=== PATIENT | female | born 2000 | race Caucasian/White ===

== ENCOUNTER 2019-09-08 19:53 | Emergency (ER) | payer BC ==
--- NOTE | 2019-09-08 20:17 | ED ---
Neck Pain - HPI Summary HPI Summary: 19 yo female presents to [facility] [place] ED with right sided neck pain that began today. She tells me that about 2 days ago she was reaching for something off the side of her bed and fell off and landed awkwardly on her head and neck. Yesterday noticed some mild right neck pain worse with movement, but today the area was much more painful and feels stiff. She admits that she is anxious about this being related to her lungs as for the last 7-8 months has had subjective shortness of breath and is in the process of seeing pulmonology for this. She has not taken anything OTC for her symptoms. Denies headache, dizziness, numbness, tingling, chest pain, abdominal pain, n/v. - History of Current Complaint Chief Complaint: EDNeckComplaint Stated Complaint: NECK PAIN PER PT Time Seen by Provider: 09/08/19 20:16 Hx Obtained From: Patient Severity Initially: Mild Severity Currently: Moderate Pain Intensity: 6 Pain Scale Used: 0-10 Numeric - Allergies/Home Medications Allergies/Adverse Reactions: Allergies Allergy/AdvReac Type Severity Reaction Status Date / Time azithromycin Allergy Hives Verified 09/08/19 20:06 Penicillins Allergy Hives Verified 09/08/19 20:06 PMH/Surg Hx/FS Hx/Imm Hx Endocrine/Hematology History: Denies: Hx Diabetes Cardiovascular History: Denies: Hx Cardiac Arrest Respiratory History: Reports: Hx Asthma Denies: Hx Chronic Obstructive Pulmonary Disease (COPD) GI History: Denies: Hx Gastroesophageal Reflux Disease Musculoskeletal History: Denies: Hx Arthritis Neurological History: Denies: Hx CVA, Hx Headaches, Hx Migraine Psychiatric History: Reports: Hx Anxiety - Surgical History Surgical History: None - Immunization History Immunizations Up to Date: Yes Infectious Disease History: No Infectious Disease History: Denies: Traveled Outside the [place] in Last 30 Days - Family History Known Family History: Positive: None - Social History Occupation: Student Lives: Dormitory/Roommates Alcohol Use: Occasionally Substance Use Type: Reports: None Smoking Status (MU): Never Smoked Tobacco Review of Systems Constitutional: Negative Eyes: Negative ENT: Negative Cardiovascular: Negative Respiratory: Negative Gastrointestinal: Negative Genitourinary: Negative Musculoskeletal: Other - Right neck pain Skin: Negative Neurological: Negative Psychological: Normal All Other Systems Reviewed And Are Negative: No Physical Exam - Summary Physical Exam Summary: GENERAL: NAD. WDWN. No pain distress. SKIN: No rashes, sores, or open wounds. HEENT: Head: AT/NC Eyes: PERRLA. EOM intact. Conjunctiva clear without inflammation or discharge. Ears: Hearing grossly normal. TMs intact, no bulging, erythema, or edema. Nose: Nasal mucosa pink and moist. NTTP maxillary and frontal sinus. Throat: Posterior oropharynx without exudates, erythema, or tonsillar enlargement. Uvula midline. NECK: Supple. Pain at right SCM with turning head to left. TTP about right SCM insertion. Negative spurlings. CHEST: CTAB. No r/r/w. No accessory muscle use. Breathing comfortably and in no distress. CV: RRR. Pulses intact. Brisk cap refill. MSK: FROM and 5/5 strength throughout. No edema. NEURO: Alert. Sensations intact C4-T1 b/l. PSYCH: Age appropriate behavior. Triage Information Reviewed: Yes Vital Signs On Initial Exam: Initial Vitals Temp Pulse Resp BP Pulse Ox 98.3 F 77 18 106/85 100 09/08/19 20:03 09/08/19 20:03 09/08/19 20:03 09/08/19 20:03 09/08/19 20:03 Vital Signs Reviewed: Yes Procedures - Sedation Patient Received Moderate/Deep Sedation with Procedure: No Diagnostics - Vital Signs Vital Signs Temp Pulse Resp BP Pulse Ox 09/08/19 20:03 98.3 F 77 18 106/85 100 - Laboratory Lab Statement: Any lab studies that have been ordered have been reviewed, and results considered in the medical decision making process. - Radiology CXR Radiology Interpretation Completed By: ED Physician Summary of Radiographic Findings: No acute process Neck Course/Dx - Course Course Of Treatment: CXR wet read negative. Suspect MSK strain/spasm of neck. In the ED she was given toradol for her discomfort and will rx for naproxen and have her practice gentle stretches. F/u with [facility] if symptoms do not improve. - Diagnoses Provider Diagnoses: Neck muscle spasm Discharge ED - Sign-Out/Discharge Documenting (check all that apply): Patient Departure - Discharge Plan Condition: Stable Disposition: HOME Prescriptions: Naproxen [Naproxen 500 mg tab] 500 mg PO BID PRN #30 tablet.dr LEACH Reason: Pain - Mild Patient Education Materials: Spasmodic Torticollis (ED), Muscle Spasm (ED) Referrals: [facility] - Samuel ELISE [Primary Care Provider] - Additional Instructions: If you develop a fever, shortness of breath, chest pain, new or worsening symptoms - please call your PCP or go to the ED immediately. The X-ray of your chest appears normal this evening. In the ER you were given a shot of pain medication. Tomorrow I recommend that you begin taking naproxen as prescribed to [facility] and practice gentle stretching of your neck to loosen the muscles. - Billing Disposition and Condition Condition: STABLE Disposition: Home
[2019-09-08] MEDS ORDERED: Ketorolac INJ* 30 MG/ML 1 ML VIAL IM ONE (20:30)
[2019-09-08 21:06] VITALS: BP 121/63
== END 2019-09-08 20:56 | disposition home or self-care (01) ==
LOC: ED 19:53
DX: M62.838 Other muscle spasm (principal); M54.2 Cervicalgia; F41.9 Anxiety disorder, unspecified; Z88.0 Allergy status to penicillin
CPT/HCPCS: 71046; 96372; 99282; J1885